=== PATIENT | female | born 1950 | race Caucasian/White ===

== ENCOUNTER 2022-12-18 09:46 | Emergency (ER) | payer OTHER, MEDICARE ==
[2022-12-18 10:16] VITALS: BP 170/65; PULSE 66; RESP 16; TEMP 97.8; BMI 30.9
[2022-12-18] MEDS ORDERED: KETOROLAC TROMETHAMINE 30 MG/1 ML VIAL IM ONE (11:12)
[2022-12-18] MEDS ORDERED: KETOROLAC TROMETHAMINE 30 MG/1 ML VIAL ONE (11:26)
[2022-12-18] MEDS ORDERED: LIDOCAINE 5% TOPICAL PATCH TP ONE (14:17)
[2022-12-18] MEDS ORDERED: LIDOCAINE 5% TOPICAL PATCH ONE (14:31)
== END 2022-12-18 14:40 | disposition home or self-care (01) ==
LOC: JERFT 09:46
PROC: 3E0233Z Introduction of Anti-inflammatory into Muscle, Percutaneous Approach (ICD-10-PCS; principal; 2022-12-18)
DX: S82.111A Displaced fracture of right tibial spine, initial encounter for closed fracture (principal); M25.561 Pain in right knee; M54.2 Cervicalgia; W01.0XXA Fall on same level from slipping, tripping and stumbling without subsequent striking against object, initial encounter; Y92.9 Unspecified place or not applicable
CPT/HCPCS: 72125-TC; 72131-TC; 72170-TC-FY; 73110-TC-LT-FY; 73110-TC-RT-FY; 73130-TC-LT-FY; 73130-TC-RT-FY; 73700-TC-RT; 99284-25